=== PATIENT | male | born 1955 | race Caucasian/White ===

== ENCOUNTER 2016-12-12 09:14 | Emergency (ER) | payer SELFPAY ==
--- NOTE | 2016-12-12 10:01 | UC ---
Lower Extremity/Ankle HPI - HPI Summary HPI Summary: Pt reports a hx about 6 years ago of b/l quad tendon pain and has had to use walking sticks ever since due to pain in his lower legs. Today complains of right heel pain with ambulation. Has been more active lately - hiking, walking stairs due to elevator issues at work, walking up hills, and forgetting his walking sticks at times. Denies chest pain, SOB, dizziness, dyspnea, or BANDA. - History of Current Complaint Chief Complaint: UCLowerExtremity Stated Complaint: ANKLE INJURY Time Seen by Provider: 12/12/16 09:52 Hx Obtained From: Patient Onset/Duration: Gradual Onset Severity Initially: Mild Severity Currently: Moderate Pain Intensity: 4 Pain Scale Used: 0-10 Numeric Aggravating Factor(s): Standing, Ambulation Alleviating Factor(s): Rest, Elevation Able to Bear Weight: Yes - Risk Factors Gout Risk Factors: Age Over 40, Male, Hypertension - Allergies/Home Medications Allergies/Adverse Reactions: Allergies Allergy/AdvReac Type Severity Reaction Status Date / Time No Known Allergies Allergy Verified 12/12/16 09:27 Home Medications: Home Medications Ibuprofen [Advil] 600 mg PO SEE INSTRUCTIONS 12/12/16 [History Confirmed ] PMH/Surg Hx/FS Hx/Imm Hx - Additional Past Medical History Additional PMH: Admits to no past medical history other than his quad injury Previously Healthy: Yes - Surgical History Surgical History: Yes Surgery Procedure, Year, and Place: bilateral quad. 2010 - Social History Occupation: Employed Full-time Lives: With Family Alcohol Use: Rare Alcohol Amount: couple glasses a day wine Substance Use Type: Marijuana Substance Use Comment - Amount & Last Used: 35 years ago Smoking Status (MU): Never Smoked Tobacco - Immunization History Most Recent Influenza Vaccination: none Review of Systems Constitutional: Negative Respiratory: Negative - No SOB, BANDA, dyspnea, nocturnal dyspnea, or cough. Cardiovascular: Negative Gastrointestinal: Negative Motor: Negative Neurovascular: Negative Musculoskeletal: Edema - B/L LE, Other: - Pain in right heel Neurological: Negative Psychological: Negative Is Patient Immunocompromised?: No All Other Systems Reviewed And Are Negative: Yes Physical Exam Triage Information Reviewed: Yes Appearance: Well-Appearing, No Pain Distress Vital Signs: Initial Vital Signs Temp 99.1 F 12/12/16 09:21 Pulse 83 12/12/16 09:21 Resp 18 12/12/16 09:21 BP 162/95 12/12/16 09:21 Vital Signs Reviewed: Yes Respiratory Exam: Normal Respiratory: Positive: Chest non-tender, Lungs clear, Normal breath sounds. Negative: Crackles, Rhonchi, Wheezing, Plerual rub Cardiovascular Exam: Normal Cardiovascular: Positive: RRR, No Murmur, Pulses Normal - Dorsalis pedis pulses intact., Other: - No JVD. Negative: Delayed Capillary Refill Musculoskeletal: Positive: Strength Intact, ROM Intact, Edema @ - B/L feet, ankles, and legs 3+., Other: - TTP over right plantar calcaneus Neurological Exam: Normal Neurological: Positive: Alert Psychological Exam: Normal Psychological: Positive: Normal Response To Family, Age Appropriate Behavior Skin: Positive: Other - Brawny and dusky appearing skin of b/l feet. Diagnostics - Laboratory Diagnostic Studies Completed/Ordered: XR negative for acute findings Lower Extremity Course/Dx - Course Course Of Treatment: Pt has not tried any OTC therapy, will try ibuprofen, plantar stretching, and rest. XR of foot was negative for acute findings, it did however reveal an enthesophyte at the origin of the plantar fascia. Has a follow up next week with orthopedics regarding his continued quad pain. Regarding his LE edema and high blood pressure - he was strongly encouraged to make a follow up appointment with his PCP as he has not seen him in 5+ years. The pt was agreeable to this and said he would schedule a f/u. - Differential Dx/Diagnosis Differential Diagnosis/HQI/PQRI: Cellulitis, Sprain, Strain, Tendonitis Provider Diagnoses: Plantar fasciitis right Discharge - Discharge Plan Condition: Stable Disposition: HOME Patient Education Materials: Plantar Fasciitis (ED), Plantar Fasciitis Exercises (GEN) Referrals: Augie Tran MD [Primary Care Provider] - As Soon As Possible Additional Instructions: Rest, ice, and stretch your foot as demonstrated in the clinic. Recommend heel or shoe inserts for daily shoes. Can take ibuprofen 200mg 2-3 tabs by mouth every 6 hours for pain. Please follow up with your PCP regarding your lower extremity swelling and your high blood pressure. Follow up with orthopedics as previously scheduled.
--- NOTE | 2016-12-12 10:49 | RAD ---
INDICATION: Pain following ankle injury. COMPARISON: None. TECHNIQUE: 3 views of the right foot were obtained. FINDINGS: The adequately corticated bones are properly aligned. A well-corticated bony focus immediately lateral to the cuboid is most consistent with a benign ossicle. There is a small enthesophyte at the origin of the plantar fascia on the calcaneal tubercle. Joint spaces appear maintained. No fracture, dislocation or focal bony abnormality is seen. IMPRESSION: NO RADIOGRAPHICALLY APPARENT FRACTURE OR DISLOCATION. If the patient's symptoms persist, follow-up imaging is recommended.
[2016-12-12 11:49] VITALS: BP 155/91
== END 2016-12-12 11:17 | disposition home or self-care (01) ==
LOC: UCEAST 09:14
DX: M72.2 Plantar fascial fibromatosis (principal); Z79.891 Long term (current) use of opiate analgesic
CPT/HCPCS: 99202; G0463